=== PATIENT | female | born 2000 ===

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

== ENCOUNTER 2018-03-24 21:37 | Emergency (ER) | payer BC ==
[2018-03-24 21:49] VITALS: O2SAT 98
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
[2018-03-24 23:19] VITALS: BP 110/66; PULSE 76; RESP 18; TEMP 98.3
--- NOTE | 2018-03-25 09:45 | RAD ---
Date of service: 03/24/2018 HISTORY: cough COMPARISON: No prior. TECHNIQUE: Chest PA and lateral FINDINGS: LUNGS: No active pulmonary disease. PLEURA: No significant pleural effusion identified. No pneumothorax apparent. CARDIOVASCULAR: No aortic atherosclerotic calcification present. Normal cardiac size. No pulmonary vascular congestion. OSSEOUS STRUCTURES: Dextroscoliotic thoracolumbar spinal deformity. VISUALIZED UPPER ABDOMEN: Surgical clips right upper quadrant abdomen. OTHER FINDINGS: None. IMPRESSION: No acute cardiopulmonary disease appreciable.
== END 2018-03-24 22:56 | disposition home or self-care (01) ==
LOC: H.ER 21:37
DX: J20.9 Acute bronchitis, unspecified (principal)

== ENCOUNTER 2018-08-04 15:54 | Emergency (ER) | payer BC ==
[2018-08-04] MEDS ORDERED: Sodium Chloride 0.9% 1,000 ML IV STA (16:57)
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
[2018-08-04 18:01] LABS: BASO # 0.1 K/uL (0.0-0.2); BASO % 0.9 % (0.0-2.0); EOS % 0.3 % (0.0-4.0); HEMOGLOBIN 13.2 g/dL (12.0-16.0); LYMPH # 2.1 K/uL (1.0-4.3); LYMPH % 26.5 % (20.0-40.0); MEAN CORPUSCULAR HEMOGLOBIN 30.4 pg (27.0-31.0); MEAN CORPUSCULAR HGB CONC 33.4 g/dL (33.0-37.0); MEAN PLATELET VOLUME 9.5 fl (7.2-11.7); MONO # 0.6 K/uL (0.0-0.8); MONO % 7.8 % (0.0-10.0); NEUT % 64.5 % (50.0-75.0); NRBC % 0.1 % (0.0-0.0); RBC 4.34 Mil/uL (3.80-5.20); RED CELL DISTRIBUTION WIDTH 14.4 % (11.5-14.5); WHITE BLOOD COUNT 7.8 K/uL (4.8-10.8)
[2018-08-04 18:04] LABS: ALB/GLOB RATIO 1.4 (1.0-2.1); ALBUMIN 4.8 g/dL (3.5-5.0); ALT/SGPT 31 U/L (9-52); AST/SGOT 35 U/L (14-36); BLOOD UREA NITROGEN 14 mg/dl (7-17); CALCIUM 9.2 mg/dL (8.4-10.2); GFR NON-AFRICAN AMERICAN > 60
[2018-08-04 19:09] VITALS: BP 116/89; PULSE 85; RESP 21; TEMP 97.8; O2SAT 97
== END 2018-08-04 19:08 | disposition home or self-care (01) ==
LOC: H.ER 15:54
DX: R00.2 Palpitations (principal); T50.905A Adverse effect of unspecified drugs, medicaments and biological substances, initial encounter; R56.9 Unspecified convulsions
CPT/HCPCS: 80053; 83735; 84443; 85025; 96360; 99285; J7030

== ENCOUNTER 2018-09-06 11:52 | Emergency (ER) | payer BC ==
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
[2018-09-06 14:37] LABS: BASO # 0.1 K/uL (0.0-0.2); BASO % 0.7 % (0.0-2.0); EOS # 0.1 K/uL (0.0-0.7); EOS % 1.4 % (0.0-4.0); HEMOGLOBIN 12.6 g/dL (12.0-16.0); LYMPH # 2.2 K/uL (1.0-4.3); LYMPH % 22.7 % (20.0-40.0); MEAN CELL VOLUME 93.3 fl (81.0-99.0); MEAN CORPUSCULAR HEMOGLOBIN 31.1 pg (27.0-31.0); MEAN CORPUSCULAR HGB CONC 33.3 g/dL (33.0-37.0); MEAN PLATELET VOLUME 10.3 fl (7.2-11.7); MONO # 0.8 K/uL (0.0-0.8); MONO % 8.5 % (0.0-10.0); NEUT # 6.6 K/uL (1.8-7.0); NEUT % 66.7 % (50.0-75.0); RBC 4.06 Mil/uL (3.80-5.20); RED CELL DISTRIBUTION WIDTH 14.5 % (11.5-14.5); WHITE BLOOD COUNT 9.8 K/uL (4.8-10.8)
[2018-09-06 14:58] LABS: ALB/GLOB RATIO 1.4 (1.0-2.1); ALBUMIN 4.5 g/dL (3.5-5.0); ALT/SGPT 19 U/L (9-52); AST/SGOT 21 U/L (14-36); BLOOD UREA NITROGEN 16 mg/dl (7-17); CALCIUM 9.2 mg/dL (8.4-10.2); GFR NON-AFRICAN AMERICAN > 60
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
[2018-09-06 16:06] VITALS: RESP 18
[2018-09-06 16:35] VITALS: O2SAT 99
[2018-09-06 21:13] VITALS: BP 122/70; PULSE 71; TEMP 98
== END 2018-09-06 16:45 | disposition home or self-care (01) ==
LOC: H.ER 11:52
DX: G40.909 Epilepsy, unspecified, not intractable, without status epilepticus (principal); S09.90XA Unspecified injury of head, initial encounter; G93.89 Other specified disorders of brain; Z87.820 Personal history of traumatic brain injury